=== PATIENT | female | born 1985 | race Caucasian/White ===

== ENCOUNTER 2016-12-14 06:06 | Inpatient (IN) | payer OTHER ==
[2016-12-14] MEDS ORDERED: OXYTOCIN/RINGERS LACTATE 1,000 ML IV PRN (06:42)
[2016-12-14] MEDS ORDERED: LR 1,000 ML IV PRN (06:42)
[2016-12-14] MEDS ORDERED: TERBUTALINE SULFATE 1 MG/ML VIAL IV PRN (06:42)
[2016-12-14] MEDS ORDERED: MINERAL OIL 60 ML OIL TP PRN (06:42)
[2016-12-14] MEDS ORDERED: LIDOCAINE 1% 30 ML SDV SC PRN (06:42)
[2016-12-14] MEDS ORDERED: EPSOM SALT 454 GM TP PRN (06:42)
[2016-12-14 07:08] LABS: % IMMATURE GRANULYOCYTES 0.4 % (0.0-1.1); ABSOLUTE IMMATURE GRANULOCYTES 0.03 10^3/uL (0.00-0.10); ADD DIFF? NO; ADD MORPH? NO; ADD SCAN? NO; ATYPICAL LYMPHOCYTE FLAG 0 (0-99); FRAGMENT RBC FLAG 0 (0-99); HEMATOCRIT 37.2 % (38.0-47.0); HEMOGLOBIN 12.9 g/dL (12.6-16.3); LEFT SHIFT FLG 0 (0-99); LIPEMIA HEMOLYSIS FLAG 90 (0-99); MEAN CELL HEMOGLOBIN 33.9 pg (27.9-34.1); MEAN CELL HEMOGLOBIN CONCENTR. 34.7 g/dL (32.4-36.7); MEAN CELL VOLUME 97.9 fL (81.5-99.8); MEAN PLATELET VOLUME 10.8 fL (8.7-11.7); PLATELET CLUMPS FLAG 10 (0-99); PLATELET COUNT 155 10^3/uL (150-400); RED CELL DISTRIBUTION WIDTH 12.4 % (11.5-15.2)
[2016-12-14] MEDS ORDERED: OXYTOCIN/LR *LOW DOSE PROTOCOL IV SCH (07:30)
[2016-12-14] MEDS ORDERED: MISOPROSTOL 200 MCG TAB ONE (07:53)
--- NOTE | 2016-12-14 08:18 | OBPROG ---
OBG Progress Note Assessment/Plan: Assessment: 31 y/o @ 40 5/7 wks for elective IOL Plan: Daugherty balloon in vagina and removed Pitocin has been started per protocol FHTs - Cat I tracing GBS negative, no prophylactic antibiotics needed 12/14/16 08:15 Subjective: Pt is getting back into bed from the bathroom. Doing well, no complaints. Objective: 12/14/16 06:30 Patient ABO/Rh O POSITIVE 12/14/16 06:30 - SVE Dilation (cm): 3 Effacement (%): Less than 50 Station: -3 Current Contraction Pattern: Irregular FHR (bpm): 130 FHR Pattern Variability: Moderate FHR Category: 1 Membranes: Intact ICD10 Worksheet Patient Problems: Problems Problem Status Diagnosed Elective induction of labor planned Acute - ICD10 Problem Qualifiers (1) Elective induction of labor planned
--- NOTE | 2016-12-14 09:27 | GHP ---
[f rep st] HISTORY AND PHYSICAL DATE OF ADMISSION: 12/14/2016 ADMITTING DIAGNOSES: 1. Intrauterine at 40 weeks and 4 days. 2. Elective induction. HISTORY OF PRESENT ILLNESS: Patient is a 31-year-old 2, para 0-0-1-0, at 40 weeks and 4/7 days with MERYL of 12/10/2016 by her last menstrual period 03/05/2016, and confirmed by a first trimester ultrasound at 7 weeks. Patient presented to the office yesterday for routine visit and stated she is ready to be done with the . Baby is still noted to be OP (occiput posterior) by bedside ultrasound. Patient is having increased back pain. She was checked and found to be 1 cm dilated, long and -2 station. Risks of an elective induction were discussed including risk of , etc. The patient understands and wants to proceed with induction. A Daugherty balloon was placed yesterday without difficulty by Dr. Panchal. She presents this morning to Labor and Delivery at 6 a.m. Patient was examined and the Daugherty balloon was found to be in vagina and was removed. Cervix was checked and found to be 3 cm dilated, 25% effaced, and -2 station. Pitocin had already been started per protocol by RN. Patient has had good care at [facility] and presented in her first trimester. course has been uncomplicated. Patient does have a family history of Down syndrome, brother, but declined all genetic testing. Patient was found to be anemic at her 28-week visit with a hematocrit 33.5, and was started on iron, tolerated well. Patient received both Tdap and flu vaccine. GBS culture was negative. OBSTETRIC HISTORY: In December of 2015, patient had a missed AB and had a D and C; questionable whether there was mono-mono or conjoined twins. Last menstrual period 03/05/2016. She had a positive test 04/08/2016. PAST GYNECOLOGIC HISTORY: Menarche age 12. Cycles are regular, every 28-30 days x5 days. Patient does not have a history of abnormal Pap smears. Denies any exposure to sexually transmitted diseases. Pap smear, gonorrhea, and chlamydia cultures were negative in this . PAST MEDICAL HISTORY: Depression, currently on no meds. PAST SURGICAL HISTORY: Remarkable for the D and C in December 2015. Pilonidal cyst removed in 1991 and wisdom teeth extraction. FAMILY HISTORY: Maternal grandmother had breast cancer age mid 40s, also had lung cancer; she was a smoker. Brother with Down syndrome. CURRENT MEDICATIONS: Zyrtec as needed, vitamins, DHE, iron. ALLERGIES: Potato and environmental, but no known drug allergies. LABORATORY DATA: Patient is O positive, antibody negative. RPR negative. Rubella immune. Hepatitis B surface antigen negative. HIV negative. TSH is 0.684. Pap, gonorrhea/chlamydia cultures all negative. H and H at 20 weeks 11.5 and 33.6. One-hour Glucola is normal at 76. GBS is negative. ADMISSION PHYSICAL EXAM: VITAL SIGNS: Stable. Patient is afebrile. GENERAL: Well-nourished, well-developed 31-year-old female, alert and oriented x3 in no apparent distress. HEART: Regular rate, rhythm. LUNGS: Clear to auscultation. ABDOMEN: Gravid, soft, nondistended, nontender. Active bowel sounds. EXTREMITIES: Normal to inspection without calf tenderness and edema. PELVIC EXAM: She was found to be 3 cm dilated, 25% effaced, -2 station. HEART TONES: Category 1 tracing, positive accelerations, no decelerations, heart rate 130 beats per minute, moderate variability. ASSESSMENT: Patient is a 31-year-old, 2, para 0-0-1-0, at 40 weeks and 4/7 days, who presents for elective induction, status post Daugherty balloon placement. PLAN: 1. Admit to labor and delivery. 2. Start Pitocin per protocol. 3. GBS is negative, no prophylactic antibiotics are needed. 4. Pain medicine, nitrous oxide, epidural upon request. /[id number]/MODL MTDD
--- NOTE | 2016-12-14 12:40 | OBPROG ---
OBG Progress Note Assessment/Plan: Assessment: 31 y/o @ 40 4/7 wks for elective IOL Plan: Continue current management Attempted AROM, but head ballotable Pitocin at 17 mu/min, cont per protocol FHTs - Cat I tracing 12/14/16 12:37 Subjective: Pt is sitting on the couch and starting to feel her ctx's, pain 4-5/10. Objective: 12/14/16 06:30 Patient ABO/Rh O POSITIVE 12/14/16 06:30 - SVE Dilation (cm): 3 Effacement (%): 50 Station: -2 Current Contraction Pattern: Regular FHR (bpm): 130 FHR Pattern Variability: Moderate FHR Category: 1 Membranes: Intact ICD10 Worksheet Patient Problems: Problems Problem Status Diagnosed Elective induction of labor planned Acute - ICD10 Problem Qualifiers (1) Elective induction of labor planned
--- NOTE | 2016-12-14 17:05 | OBPROG ---
OBG Progress Note Assessment/Plan: Assessment: 31 y/o @ 40 4/7 wks for elective IOL Plan: Continue current management AROM performed - bloody Pitocin at 20 mu/min, hold for now and if ctx's space out may increase per protocol above 20 mu/min FHTs - Cat I tracing Epidural upon request 12/14/16 17:02 Subjective: Pt is back in bed and was in the tub; pain with ctx's now 7-8. Objective: 12/14/16 06:30 Patient ABO/Rh O POSITIVE 12/14/16 06:30 - SVE Dilation (cm): 3 Effacement (%): 75 Station: -1 Current Contraction Pattern: Regular FHR (bpm): 130 FHR Pattern Variability: Moderate FHR Category: 1 Membranes: AROM Amniotic Fluid Color: Bloody ICD10 Worksheet Patient Problems: Problems Problem Status Diagnosed Elective induction of labor planned Acute - ICD10 Problem Qualifiers (1) Elective induction of labor planned
[2016-12-14] MEDS ORDERED: BUPIVACAINE 0.25% 30 ML SDV ONE (17:39)
[2016-12-14] MEDS ORDERED: fentaNYL 2MCG/ML/BUP 0.1% RTU 100 ML BAG EP ONE (17:40)
[2016-12-14] MEDS ORDERED: LR 500 ML IV SCH (18:30)
[2016-12-15] MEDS ORDERED: HYDROCODONE/APAP 5/325 TAB PO PRN (00:43)
[2016-12-15] MEDS ORDERED: SIMETHICONE 80 MG TAB CHEW PO PRN (00:43)
[2016-12-15] MEDS ORDERED: HYDROCORTISONE 0.5% CREAM TP PRN (00:43)
[2016-12-15] MEDS ORDERED: IBUPROFEN 600 MG TAB PO PRN (00:44)
--- NOTE | 2016-12-15 00:48 | OBPROC ---
- Labor and Delivery Onset of Contractions Date: 12/14/16 Onset of Contractions Time: 07:15 Onset of Contractions Type: Induced Rupture of Membranes Date: 12/14/16 Rupture of Membranes Time: 12:30 Rupture of Membranes Type: Artificial Amniotic Fluid Color: Bloody Dilation Complete Time: 22:45 Delivery Type: Spontaneous Placenta Delivery Date: 12/15/16 Placenta Delivery Time: 00:05 Episiotomy/Laceration: 3rd Degree (Rectal exam performed and rectal mucosa intact) Repair: 3-0, Vicryl (under local - 1% Lidocaine) EBL: 300 Complications: None - Medications Labor Augmentation/Induction Meds Used: Pitocin Labor Augmentation/Induction Indication: Elective Anesthesia: Epidural, Local (Specify) (1% Lidocaine for the repair) - Info A Delivery Date: 12/14/16 Delivery Time: 23:58 Sex of : Female Score (1 Min): 8 Score (5 Min): 9
[2016-12-15] MEDS: IBUPROFEN 600 MG TAB PO PRN ×4 (01:17→20:53)
--- NOTE | 2016-12-15 09:09 | OBPROG ---
OBG Progress Note Assessment/Plan: Assessment: 31 y/o PPD #1 s/p doing well. Plan: Continue Ibuprofen and Colace today. support and will observe her right leg numbness. support and routine PPC. 12/15/16 09:08 Subjective: Pt is doing well today. She has some cramping with nursing but is not complaining of significant pain. No n/v, natan reg diet and voiding well. Min lochia. She continues to have some numbness in her right leg. but it is slowly improving. Nursing is going well and baby is doing well. Objective: 12/14/16 06:30 Patient ABO/Rh O POSITIVE 12/14/16 06:30 Temp Pulse Resp BP Pulse Ox 36.7 C 124 H 18 102/68 94 12/15/16 03:16 12/15/16 03:16 12/15/16 03:16 12/15/16 03:16 12/15/16 03:16 Uterine Position/Fundal Height: Umbilicus -2 Uterine Tone: Firm - Physical Exam General Appearance: WD/WN, alert, no apparent distress Neck: non-tender, full range of motion, supple Respiratory: chest non-tender, lungs clear, normal breath sounds Cardiac/Chest: regular rate, rhythm Abdomen: normal bowel sounds Extremities: swelling (no), Rojelio's sign (neg) ICD10 Worksheet Patient Problems: Problems Problem Status Diagnosed Elective induction of labor planned Acute (spontaneous vaginal delivery) Acute
[2016-12-15] MEDS: DOCUSATE SODIUM 100 MG CAP PO PRN ×2 (09:10→20:53)
[2016-12-15 20:23] VITALS: O2SAT 96
[2016-12-16] MEDS: IBUPROFEN 600 MG TAB PO PRN (09:45)
[2016-12-16] MEDS: DOCUSATE SODIUM 100 MG CAP PO PRN (09:46)
--- NOTE | 2016-12-16 10:03 | SOAPPROG ---
SOAP Progress Note Assessment/Plan: Assessment: PPD 1 1/2, s/p with third degree lac Plan: Doing well, d/c home 12/16/16 10:00 Subjective: Pt doing well. Tired as baby up a lot but BF going well. Pt is able to fall asleep and nap freq. Bld is light. mild cramps when BF and managing discomfort with ibu only. Had a BM last noc - not too painful and not hard. urinating fine. Desires d/c Objective: Vital Signs Temp Pulse Resp BP Pulse Ox 36.9 C 90 17 110/73 96 12/15/16 20:00 12/15/16 20:00 12/15/16 20:00 12/15/16 20:00 12/15/16 20:00 Laboratory Results 12/14/16 06:30 12/15/16 12/16/16 12/17/16 05:59 05:59 05:59 Intake Total 4200 Output Total 300 Balance 3900 Physical Exam - Physical Exam General Appearance: WD/WN Abdomen: non-tender, soft, other (FF at umb -1) Pelvic Exam: vaginal bleeding (normal lochia) Extremities: non-tender, pedal edema (minimal) Neuro/Psych: normal mood/affect ICD10 Worksheet Patient Problems: Problems Problem Status Diagnosed Elective induction of labor planned Acute (spontaneous vaginal delivery) Acute
[2016-12-16 10:40] VITALS: BP 100/61; PULSE 67; RESP 16; TEMP 97.1
== END 2016-12-16 15:40 | disposition home or self-care (01) | DRG 775 ==
LOC: FLD 06:06 → FOB 12-15 03:03
PROVIDERS: ADMIT Advanced Practice Midwife; ATTEND Obstetrics & Gynecology
PROC: 0DQR0ZZ Repair Anal Sphincter, Open Approach (ICD-10-PCS; principal; 2016-12-14)
PROC: 10E0XZZ Delivery of Products of Conception, External Approach (ICD-10-PCS; principal; 2016-12-14)
PROC: 10907ZC Drainage of Amniotic Fluid, Therapeutic from Products of Conception, Via Natural or Artificial Opening (ICD-10-PCS; principal; 2016-12-14)
DX: O48.0 Post-term pregnancy (principal); O70.20 Third degree perineal laceration during delivery, unspecified; Z3A.40 40 weeks gestation of pregnancy; Z37.0 Single live birth
CPT/HCPCS: J2590

== ENCOUNTER → 2018-04-27 | Outpatient (CLI) | payer OTHER | LOC: FIMAGING 13:16 | PROVIDERS: ATTEND Obstetrics & Gynecology | DX: O35.8XX0 Maternal care for other (suspected) fetal abnormality and damage, not applicable or unspecified (principal); O35.0XX0 Maternal care for (suspected) central nervous system malformation in fetus, not applicable or unspecified; O35.1XX0 Maternal care for (suspected) chromosomal abnormality in fetus, not applicable or unspecified; O36.5920 Maternal care for other known or suspected poor fetal growth, second trimester, not applicable or unspecified; Q03.1 Atresia of foramina of Magendie and Luschka; Z3A.19 19 weeks gestation of pregnancy | CPT/HCPCS: 82106-90; 87496-90; 87798-90; 88235-90; 88291-90 ==